=== PATIENT | male | born 1940 | race Two or more races ===

== ENCOUNTER 2022-09-04 04:18 | Emergency (ER) | payer MEDICARE, SELFPAY ==
[2022-09-04] VITALS (12 sets, daily range): BP systolic 141–188; BP diastolic 69–84; PULSE 72–103; RESP 16–20; TEMP 37.5–39.4; O2SAT 92–97; BMI 21.5
--- NOTE | 2022-09-04 04:41 | ED_ITS ---
Documented by User: Hay Mora MD 09/04/22 07:03 HPI - Abdominal Pain General Chief Complaint: Abdominal Pain Stated Complaint: ABDOMINAL PAIN Time Seen by Provider: 09/04/22 04:41 Source: patient Mode of arrival: Wheelchair Limitations: no limitations History of Present Illness HPI narrative: patient presents complaining of constipation. History of leukemia. States he was only able to pass small BM yesterday. No nausea or vomiting. does have low grade fever. States treatment for leukemia for past 6 months. He believes his pain is related to constipation MD elicited complaint: Reports abdominal pain Related Data Home Medications Medication Instructions Recorded Confirmed acyclovir 400 mg tablet 400 mg PO DAILY 09/04/22 09/04/22 allopurinol 300 mg tablet 300 mg PO DAILY 09/04/22 09/04/22 dexamethasone 4 mg tablet 4 mg PO DAILY 09/04/22 09/04/22 rivaroxaban 20 mg tablet (Xarelto) 20 mg PO DAILY 09/04/22 09/04/22 ruxolitinib 10 mg tablet (Jakafi) 5 mg PO DAILY 09/04/22 09/04/22 venetoclax 100 mg tablet 100 mg PO Q24H 09/04/22 09/04/22 (Venclexta) Allergies Allergy/AdvReac Type Severity Reaction Status Date / Time No Known Drug Allergies Allergy Verified 09/04/22 04:32 PFSH PFSH Social History Smoking status: Never smoker Exam Constitutional Vital Signs - 24 hr 09/04/22 04:27 09/04/22 06:04 09/04/22 06:58 Temperature 100.6 F H 103 F H Pulse Rate [Monitor] 74 103 H 97 H Respiratory Rate 18 16 20 Blood Pressure Blood Pressure [Right Arm] 166/72 H 188/84 H 170/75 H Pulse Oximetry 97 95 95 Oxygen Delivery Method Room Air Room Air Room Air 09/04/22 07:30 09/04/22 08:09 09/04/22 08:31 Temperature 100.6 F H 101.9 F H Pulse Rate [Monitor] 91 H 95 H Respiratory Rate 16 18 Blood Pressure Blood Pressure [Right Arm] 157/83 H 153/74 H Pulse Oximetry 94 L 94 L Oxygen Delivery Method Room Air Room Air 09/04/22 08:59 09/04/22 08:35 09/04/22 09:17 Temperature 101.1 F H 99.5 F Pulse Rate [Monitor] 96 H Respiratory Rate 16 Blood Pressure 154/74 H Blood Pressure [Right Arm] 145/70 H Pulse Oximetry 92 L 95 Oxygen Delivery Method Room Air [facility] Common normals: normocephalic and head/scalp atraumatic Eye Common normals: conjunctivae normal Neck & C-Spine Common normals: full ROM and no lymphadenopathy Chest Common normals: inspection of chest normal Respiratory Common normals: normal respiratory effort, no use of accessory muscles and clear to auscultation bilaterally Cardio Common normals: regular rate, regular rhythm, S1 normal heart sound and S2 normal heart sound GI Other: abdomen distended . gen. tenderness Back & Pelvis Common normals: no CVA tenderness and thoracic and lumbar spine normal to inspection Extremity Common normals: normal to inspection and no joint enlargement Neuro Common normals: oriented x3 and CN's II-XII intact bilaterally Psych Common normals: mental status grossly normal Appearance: grossly normal Course Vital Signs Vital signs: Vital Signs Temperature 100.6 F H 09/04/22 04:27 Pulse Rate 74 09/04/22 04:27 Respiratory Rate 18 09/04/22 04:27 Blood Pressure 166/72 H 09/04/22 04:27 Pulse Oximetry 97 09/04/22 04:27 Oxygen Delivery Method Room Air 09/04/22 04:27 Temperature 100.1 F H 09/04/22 13:13 Pulse Rate 72 09/04/22 13:13 Respiratory Rate 18 09/04/22 13:13 Blood Pressure 141/69 H 09/04/22 13:13 Pulse Oximetry 95 09/04/22 13:13 Oxygen Delivery Method Room Air 09/04/22 13:13 MDM - Abdominal Pain MDM Narrative Medical decision making narrative: patient presents with complaint of abdominal pain which he felt was constipated related. he has leukemia and is receiving treatment [facility] oncologist. He has low grade fever and elevated lactic acid. CT demontrated perforate divertic ulitis. patient informed of the need for hospitalization. Vanco, Flagyl and NS hydration ordered . blood cx ordered also. Care transfered to Dr Conde at change of shift Lab Data Labs: Lab Results 09/04/22 09/04/22 09/04/22 Range/Units 04:49 05:49 08:29 WBC 9.5 (4.0-11.0) 10^3/uL RBC 4.79 (4.70-6.10) 10^6/uL Hgb 13.3 L (14.0-18.0) g/dL Hct 42.0 (42.0-54.0) % MCV 87.7 (80.0-94.0) fL MCH 27.8 (25.9-34.0) pg MCHC 31.7 (29.9-35.2) g/dL RDW 22.6 H (11.0-15.0) % Plt Count 238 (150-450) 10^3/uL MPV 0.0 L (9.5-13.5) fL Seg Neuts % (Manual) 79.0 Lymphocytes % (Manual) 7.0 L (20.5-60.0) % Atypical Lymphs % (Man) 5.0 % Monocytes % (Manual) 5.0 (1.7-12.0) % Eosinophils % (Manual) 1.0 (0.9-7.0) % Basophils % (Manual) 0.0 L (0.2-2.0) % Metamyelocytes % 0.0 Myelocytes % 1.0 Neutrophils # (Manual) 7.50 H (1.4-6.5) 10^3/uL Lymphocytes # (Manual) 0.66 L (1.20-3.80) 10^3/uL Monocytes # (Manual) 0.47 (0.30-0.80) 10^3/uL Eosinophils # (Manual) 0.09 (0.00-0.70) 10^3/uL Basophils # (Manual) 0.00 (0.00-0.10) 10^3/uL Metamyelocytes # 0 Myelocytes # 0.09 Nucleated RBCs 3 Sodium 127 L (136-145) mmol/L Potassium 3.6 (3.5-5.1) mmol/L Chloride 98 (98-107) mmol/L Carbon Dioxide 26.5 (21.0-32.0) mmol/L Anion Gap 6.1 BUN 37.0 H (7.0-18.0) mg/dL Creatinine 1.82 H (0.70-1.30) mg/dL Est GFR ( Amer) 43 L (>=60) Est GFR (Non-Af Amer) 36 L (>=60) BUN/Creatinine Ratio 20.3 Glucose 230 H (74-106) mg/dL Lactate 2.5 H* 1.8 (0.4-2.0) mmol/L Calcium 8.2 L (8.5-10.1) mg/dL Total Bilirubin 1.7 H (0.2-1.0) mg/dL AST 31 (15-37) U/L ALT 21 (16-63) U/L Total Protein 6.1 L (6.4-8.2) g/dL Albumin 3.0 L (3.4-5.0) g/dL Globulin 3.1 g/dL Albumin/Globulin Ratio 1.0 Lipase 68.0 L (73.0-393.0) U/L Te H. influenza (PCR) Not detected (NOT DETECTE) Acetaminophen <2.0 L (10.0-30.0) ug/mL A.calcoaceticus-baumannii cmplx PCR Not detected (NOT DETECTE) Bacteroides fragilis Not detected (NOT DETECTE) Andreina albicans (PCR) Not detected (NOT DETECTE) Andreina auris (PCR) Not detected (NOT DETECTE) C. glabrata (PCR) Not detected (NOT DETECTE) C. krusei (PCR) Not detected (NOT DETECTE) C. parapsilosis (PCR) Not detected (NOT DETECTE) C. tropicalis (PCR) Not detected (NOT DETECTE) Enterobacterales (PCR) Not detected (NOT DETECTE) E. cloacae complex PCR Not detected (NOT DETECTE) Enterococc faecalis PCR Not detected (NOT DETECTE) Enterococc faecium PCR Not detected (NOT DETECTE) E. coli (PCR) Not detected (NOT DETECTE) Klebsiella aerogenes (PCR) Not detected (NOT DETECTE) Klebsiella oxytoca PCR Not detected (NOT DETECTE) K. pneumoniae group (PCR) Not detected (NOT DETECTE) List. monocytogenes PCR Not detected (NOT DETECTE) N. meningitidis (PCR) Not detected (NOT DETECTE) Proteus spp. (copies/mL) Not detected (NOT DETECTE) Salmonella spp. (PCR) Not detected (NOT DETECTE) Serratia marcescens PCR Not detected (NOT DETECTE) Staphylococcus sp PCR Not detected (NOT DETECTE) Staph aureus (PCR) Not detected (NOT DETECTE) mecA/C & MREJ Resist Gene Not detected (NOT DETECTE) mecA/C-Methicil Resis Gene Not detected (NOT DETECTE) mcr-1 Colistin Res Gene PCR Not detected (NOT DETECTE) Staph epidermidis (PCR) Not detected (NOT DETECTE) Staph lugdunensis (TEM-PCR) Not detected (NOT DETECTE) S. maltophilia (PCR) Not detected (NOT DETECTE) Streptococcus sp PCR Not detected (NOT DETECTE) Strep agalactiae (PCR) Not detected (NOT DETECTE) Strep pneumoniae (PCR) Not detected (NOT DETECTE) S. pyogenes (PCR) Not detected (NOT DETECTE) P. aeruginosa (PCR) Not detected (NOT DETECTE) Alexandre/B-Vanco Res Genes Not detected (NOT DETECTE) blaIMP Car res Gene PCR Not detected (NOT DETECTE) KPC (blaKPC) Detect PCR Not detected (NOT DETECTE) NDM (blaNDM) Detect PCR Not detected (NOT DETECTE) OXA-48 Carbapenem Resis Gene (PCR) Not detected (NOT DETECTE) blaVIM Car Res Gene PCR Not detected (NOT DETECTE) CTX-M ESBL (PCR) Not detected (NOT DETECTE) Discharge Plan Discharge Chief Complaint: Abdominal Pain Clinical Impression: Perforated diverticulum Patient Disposition: [facility] Time of Disposition Decision: 09:35 Discharge Location: [facility] Discharge location: ER Condition: Good Mode of Transportation: EMS Discharge Date/Time: 09/04/22 13:20 Documented by User: Carlie Conde MD 09/07/22 08:18 HPI - Abdominal Pain General Chief Complaint: Abdominal Pain Stated Complaint: ABDOMINAL PAIN Time Seen by Provider: 09/04/22 04:41 Related Data Home Medications Medication Instructions Recorded Confirmed acyclovir 400 mg tablet 400 mg PO DAILY 09/04/22 09/04/22 allopurinol 300 mg tablet 300 mg PO DAILY 09/04/22 09/04/22 dexamethasone 4 mg tablet 4 mg PO DAILY 09/04/22 09/04/22 rivaroxaban 20 mg tablet (Xarelto) 20 mg PO DAILY 09/04/22 09/04/22 ruxolitinib 10 mg tablet (Jakafi) 5 mg PO DAILY 09/04/22 09/04/22 venetoclax 100 mg tablet 100 mg PO Q24H 09/04/22 09/04/22 (Venclexta) Allergies Allergy/AdvReac Type Severity Reaction Status Date / Time No Known Drug Allergies Allergy Verified 09/04/22 04:32 PFSH PFSH Social History Smoking status: Never smoker Exam Constitutional Vital Signs - 24 hr 09/04/22 04:27 09/04/22 06:04 09/04/22 06:58 Temperature 100.6 F H 103 F H Pulse Rate [Monitor] 74 103 H 97 H Respiratory Rate 18 16 20 Blood Pressure Blood Pressure [Right Arm] 166/72 H 188/84 H 170/75 H Pulse Oximetry 97 95 95 Oxygen Delivery Method Room Air Room Air Room Air 09/04/22 07:30 09/04/22 08:09 09/04/22 08:31 Temperature 100.6 F H 101.9 F H Pulse Rate [Monitor] 91 H 95 H Respiratory Rate 16 18 Blood Pressure Blood Pressure [Right Arm] 157/83 H 153/74 H Pulse Oximetry 94 L 94 L Oxygen Delivery Method Room Air Room Air 09/04/22 08:59 09/04/22 08:35 09/04/22 09:17 Temperature 101.1 F H 99.5 F Pulse Rate [Monitor] 96 H Respiratory Rate 16 Blood Pressure 154/74 H Blood Pressure [Right Arm] 145/70 H Pulse Oximetry 92 L 95 Oxygen Delivery Method Room Air Course Vital Signs Vital signs: Vital Signs Temperature 100.6 F H 09/04/22 04:27 Pulse Rate 74 09/04/22 04:27 Respiratory Rate 18 09/04/22 04:27 Blood Pressure 166/72 H 09/04/22 04:27 Pulse Oximetry 97 09/04/22 04:27 Oxygen Delivery Method Room Air 09/04/22 04:27 Temperature 100.1 F H 09/04/22 13:13 Pulse Rate 72 09/04/22 13:13 Respiratory Rate 18 09/04/22 13:13 Blood Pressure 141/69 H 09/04/22 13:13 Pulse Oximetry 95 09/04/22 13:13 Oxygen Delivery Method Room Air 09/04/22 13:13 MDM - Abdominal Pain MDM Narrative Medical decision making narrative: patient presents with complaint of abdominal pain which he felt was constipated related. he has leukemia and is receiving treatment [facility] oncologist. He has low grade fever and elevated lactic acid. CT demontrated perforate diverticulitis. patient informed of the need for hospitalization. Vanco, Flagyl and NS hydration ordered . blood cx ordered also. Care transfered to Dr Conde at change of shift Patient signed out to me by Dr. Mora awaiting fire Reynold to call back for transfer. Patient was discussed with the hospitalist Dr. Blank who advised he spoke with the surgeon and he stated because of the patient's comorbidities it would be best for the patient to be transferred to the [facility] where [facility]. The patient states he wants to be transferred to [facility] and does not want me to attempt any other hospital at this time. He understands that this could cause delaying care disability, and . at this time we are waiting a callback from [facility]. She was discussed with Dr. Peña from surgery at the [facility] at 9:30 who advised the patient can be transferred she has accepted the patient. Patient was started on Zosyn. They will call us back and they get a bed. Differential Diagnosis Differential diagnosis: Likely constipation, small bowel obstruction and other Medical Records Attestation: I reviewed the patient's medical records. Lab Data Attestation: I reviewed the patient's lab results. Labs: Lab Results 09/04/22 09/04/22 09/04/22 Range/Units 04:49 05:49 08:29 WBC 9.5 (4.0-11.0) 10^3/uL RBC 4.79 (4.70-6.10) 10^6/uL Hgb 13.3 L (14.0-18.0) g/dL Hct 42.0 (42.0-54.0) % MCV 87.7 (80.0-94.0) fL MCH 27.8 (25.9-34.0) pg MCHC 31.7 (29.9-35.2) g/dL RDW 22.6 H (11.0-15.0) % Plt Count 238 (150-450) 10^3/uL MPV 0.0 L (9.5-13.5) fL Seg Neuts % (Manual) 79.0 Lymphocytes % (Manual) 7.0 L (20.5-60.0) % Atypical Lymphs % (Man) 5.0 % Monocytes % (Manual) 5.0 (1.7-12.0) % Eosinophils % (Manual) 1.0 (0.9-7.0) % Basophils % (Manual) 0.0 L (0.2-2.0) % Metamyelocytes % 0.0 Myelocytes % 1.0 Neutrophils # (Manual) 7.50 H (1.4-6.5) 10^3/uL Lymphocytes # (Manual) 0.66 L (1.20-3.80) 10^3/uL Monocytes # (Manual) 0.47 (0.30-0.80) 10^3/uL Eosinophils # (Manual) 0.09 (0.00-0.70) 10^3/uL Basophils # (Manual) 0.00 (0.00-0.10) 10^3/uL Metamyelocytes # 0 Myelocytes # 0.09 Nucleated RBCs 3 Sodium 127 L (136-145) mmol/L Potassium 3.6 (3.5-5.1) mmol/L Chloride 98 (98-107) mmol/L Carbon Dioxide 26.5 (21.0-32.0) mmol/L Anion Gap 6.1 BUN 37.0 H (7.0-18.0) mg/dL Creatinine 1.82 H (0.70-1.30) mg/dL Est GFR ( Amer) 43 L (>=60) Est GFR (Non-Af Amer) 36 L (>=60) BUN/Creatinine Ratio 20.3 Glucose 230 H (74-106) mg/dL Lactate 2.5 H* 1.8 (0.4-2.0) mmol/L Calcium 8.2 L (8.5-10.1) mg/dL Total Bilirubin 1.7 H (0.2-1.0) mg/dL AST 31 (15-37) U/L ALT 21 (16-63) U/L Total Protein 6.1 L (6.4-8.2) g/dL Albumin 3.0 L (3.4-5.0) g/dL Globulin 3.1 g/dL Albumin/Globulin Ratio 1.0 Lipase 68.0 L (73.0-393.0) U/L Te H. influenza (PCR) Not detected (NOT DETECTE) Acetaminophen <2.0 L (10.0-30.0) ug/mL A.calcoaceticus-baumannii cmplx PCR Not detected (NOT DETECTE) Bacteroides fragilis Not detected (NOT DETECTE) Andreina albicans (PCR) Not detected (NOT DETECTE) Andreina auris (PCR) Not detected (NOT DETECTE) C. glabrata (PCR) Not detected (NOT DETECTE) C. krusei (PCR) Not detected (NOT DETECTE) C. parapsilosis (PCR) Not detected (NOT DETECTE) C. tropicalis (PCR) Not detected (NOT DETECTE) Enterobacterales (PCR) Not detected (NOT DETECTE) E. cloacae complex PCR Not detected (NOT DETECTE) Enterococc faecalis PCR Not detected (NOT DETECTE) Enterococc faecium PCR Not detected (NOT DETECTE) E. coli (PCR) Not detected (NOT DETECTE) Klebsiella aerogenes (PCR) Not detected (NOT DETECTE) Klebsiella oxytoca PCR Not detected (NOT DETECTE) K. pneumoniae group (PCR) Not detected (NOT DETECTE) List. monocytogenes PCR Not detected (NOT DETECTE) N. meningitidis (PCR) Not detected (NOT DETECTE) Proteus spp. (copies/mL) Not detected (NOT DETECTE) Salmonella spp. (PCR) Not detected (NOT DETECTE) Serratia marcescens PCR Not detected (NOT DETECTE) Staphylococcus sp PCR Not detected (NOT DETECTE) Staph aureus (PCR) Not detected (NOT DETECTE) mecA/C & MREJ Resist Gene Not detected (NOT DETECTE) mecA/C-Methicil Resis Gene Not detected (NOT DETECTE) mcr-1 Colistin Res Gene PCR Not detected (NOT DETECTE) Staph epidermidis (PCR) Not detected (NOT DETECTE) Staph lugdunensis (TEM-PCR) Not detected (NOT DETECTE) S. maltophilia (PCR) Not detected (NOT DETECTE) Streptococcus sp PCR Not detected (NOT DETECTE) Strep agalactiae (PCR) Not detected (NOT DETECTE) Strep pneumoniae (PCR) Not detected (NOT DETECTE) S. pyogenes (PCR) Not detected (NOT DETECTE) P. aeruginosa (PCR) Not detected (NOT DETECTE) Alexandre/B-Vanco Res Genes Not detected (NOT DETECTE) blaIMP Car res Gene PCR Not detected (NOT DETECTE) KPC (blaKPC) Detect PCR Not detected (NOT DETECTE) NDM (blaNDM) Detect PCR Not detected (NOT DETECTE) OXA-48 Carbapenem Resis Gene (PCR) Not detected (NOT DETECTE) blaVIM Car Res Gene PCR Not detected (NOT DETECTE) CTX-M ESBL (PCR) Not detected (NOT DETECTE) Imaging Data CT scan - abdomen: Radiologist's impression: Patient Name: DONNIE CRUZ MRN: [facility]:[id number] date: 1940 Sex: M Assigned Patient Location: ER Current Patient Location: ER Accession/Order Number: [id number] Exam Date: 09/04/2022 05:45 Report Date: 09/04/2022 06:24 At the request of: HAY MORA Procedure: CT abdomen pelvis w con EXAM: CT scan of the abdomen and pelvis using constipation mL of IV iodinated contrast. Dose reduction technique used: Automated exposure control and/or adjustment of the mA and/or kV according to patient size and/or use of iterative reconstruction technique. REASON FOR EXAM: abdominal pain COMPARISON: CT scan dated 03/26/2020 FINDINGS: Inflammatory changes in the lower abdomen surrounding the sigmoid colon. Small amount of extraluminal gas adjacent to the sigmoid colon in the right pelvis. Splenomegaly with heterogenous regions of low-attenuation. Wall thickening of the sigmoid colon in this region. Small collection of fluid and gas abutting the colon and the dome of the bladder.. Mild wall thickening of loops of small bowel in the lower abdomen. Bladder wall thickening. Left lateral pelvic 2.2 x 2.3 cm structure with varying densities including fluid, soft tissue calcification. Small right renal hernia containing a small amount of fluid. Small hernia in the lateral right abdominal wall musculature containing fat and a small amount of fluid. Small amount of ascites. Grade 1 anterolisthesis of L4 on L5. Multiple left renal cysts. Cholecystectomy. Appendectomy. Tiny hepatic cyst. Colonic diverticulosis. The uppermost portion of the right hepatic dome is not included in the [id number]. No dilated loops of small bowel or colon. No hydronephrosis or obstructing renal or ureteral calculi. Liver, pancreas, spleen, bilateral kidneys, and bilateral adrenal glands are otherwise unremarkable. No lymphadenopathy in the abdomen or pelvis. Remainder unremarkable. IMPRESSION: 1. Findings likely represent perforated acute sigmoid diverticulitis. 2. Small collection of fluid and gas between the sigmoid colon in the dome of the bladder may be due to a prominent diverticulum although a small pericolonic abscess is difficult to exclude. 3. Small bowel wall thickening is likely secondary to the peritoneal inflammation although enteritis cannot be excluded. 4. Bladder wall thickening is likely secondary to the adjacent inflammation. 5. Splenomegaly with areas of low-attenuation which may represent age-indeterminate infarcts, correlate clinically. 6. Lateral left lower pelvic heterogenous density lesion is favored to represent fat necrosis. Electronically authenticated by: CARIDAD ROSENBERG Date: 09/04/2022 06:24 Discharge Plan Discharge Chief Complaint: Abdominal Pain Clinical Impression: Perforated diverticulum Patient Disposition: [facility] Time of Disposition Decision: 09:35 Discharge Location: [facility] Discharge location: ER Condition: Good Mode of Transportation: EMS Discharge Date/Time: 09/04/22 13:20
[2022-09-04 05:22] LABS: Alanine Aminotransferase 21 U/L (16-63); Alkaline Phosphatase 73 U/L (46-116); Anion Gap 6.1; Aspartate Amino Transferase 31 U/L (15-37); BUN Creatinine Ratio 20.3; Bilirubin Total 1.7 mg/dL (0.2-1.0); Calcium 8.2 mg/dL (8.5-10.1); Carbon Dioxide 26.5 mmol/L (21.0-32.0); Chloride 98 mmol/L (98-107); Estimated GFR (African America 43 (>=60); Estimated GFR (Non-African Ame 36 (>=60); Globulin 3.1 g/dL; Glucose 230 mg/dL (74-106); Potassium 3.6 mmol/L (3.5-5.1); Sodium 127 mmol/L (136-145); Total Protein 6.1 g/dL (6.4-8.2)
[2022-09-04 05:31] LABS: Hemoglobin 13.3 g/dL (14.0-18.0); Lactate/Lactic Acid 2.5 mmol/L (0.4-2.0); Mean Corpuscular HGB Conc 31.7 g/dL (29.9-35.2); Mean Corpuscular Hemoglobin 27.8 pg (25.9-34.0); Mean Corpuscular Volume 87.7 fL (80.0-94.0); Platelet Count 238 10^3/uL (150-450); Red Blood Count 4.79 10^6/uL (4.70-6.10); Red Cell Distribution Width 22.6 % (11.0-15.0); White Blood Count 9.5 10^3/uL (4.0-11.0)
[2022-09-04] MEDS: 0.9 % SODIUM CHLORIDE 1,000 ML 999 ML IV ×2 (05:35→08:16)
--- NOTE | 2022-09-04 05:39 | PC.NURSE ---
To CT at this time.
[2022-09-04 05:51] LABS: Eosinophils Absolute Manual 0.09 10^3/uL (0.00-0.70); Lymphocytes Absolute Manual 0.66 10^3/uL (1.20-3.80); Metamyelocytes Absolute Manual 0; Monocytes Absolute Manual 0.47 10^3/uL (0.30-0.80); Myelocytes Absolute Manual 0.09
[2022-09-04 05:52] LABS: Nucleated Red Blood Cells 3
--- NOTE | 2022-09-04 07:11 | PC.NURSE ---
called pharmacy cps due to unverified medications due to sepsis alert times 2 with medications continues to be unverified. Aubrie Trevino
[2022-09-04] MEDS: 0.9 % SODIUM CHLORIDE 1,000 ML 1000 ML IV (07:25)
[2022-09-04] MEDS: ACETAMINOPHEN 500 MG TABLET 1000 MG PO (07:30)
[2022-09-04 07:33] LABS: Acetaminophen <2.0 ug/mL (10.0-30.0)
[2022-09-04] MEDS: VANCOMYCIN HCL 1,000 MG in 0.9 % SODIUM CHLORIDE 250 ML 250 MG IV (07:37)
--- NOTE | 2022-09-04 08:15 | PC.NURSE ---
UPDATED DR ROTH INCREASED TEMP, PT REPEAT LACTIC ORDERED, AND PT CONTINUED NS BOLUS 2ND LITER STARTED. DIONTE OBANDO
[2022-09-04] MEDS: METRONIDAZOLE/SODIUM CHLORIDE 500 MG/100 ML PREMIX 100 MG IV (08:31)
[2022-09-04 09:10] LABS: Lactate/Lactic Acid 1.8 mmol/L (0.4-2.0)
[2022-09-04] MEDS: PIPERACILLIN SODIUM/TAZOBACTAM 4.5 GM in 0.9 % SODIUM CHLORIDE 50 ML IV (10:10)
--- NOTE | 2022-09-04 13:10 | PC.NURSE ---
EMS ARRIVES TO TAKE PT TO [facility]. REPORT GIVEN TO EMS STAFF WHO ASSUMES CARE. PT BELONGINGS ALL READY FOR PT TO TAKE ON TRANSPORT. DIONTE OBANDO
[2022-09-06 08:06] LABS: A. calcoaceticus-baumannii Cpx NOT DETECTED (NOT DETECTE); Bacteroides fragilis NOT DETECTED (NOT DETECTE); CTX-M NOT DETECTED (NOT DETECTE); Candida albicans NOT DETECTED (NOT DETECTE); Candida auris NOT DETECTED (NOT DETECTE); Candida glabrata NOT DETECTED (NOT DETECTE); Candida krusei NOT DETECTED (NOT DETECTE); Candida parapsilosis NOT DETECTED (NOT DETECTE); Candida tropicalis NOT DETECTED (NOT DETECTE); Enterobacter cloacae complex NOT DETECTED (NOT DETECTE); Enterobacterales NOT DETECTED (NOT DETECTE); Enterococcus faecalis NOT DETECTED (NOT DETECTE); Enterococcus faecium NOT DETECTED (NOT DETECTE); Haemophilus influenzae NOT DETECTED (NOT DETECTE); IMP NOT DETECTED (NOT DETECTE); KPC NOT DETECTED (NOT DETECTE); Klebsiella aerogenes NOT DETECTED (NOT DETECTE); Klebsiella pneumoniae group NOT DETECTED (NOT DETECTE); Listeria monocytogenes NOT DETECTED (NOT DETECTE); NDM NOT DETECTED (NOT DETECTE); Neisseria meningitidis NOT DETECTED (NOT DETECTE); OXA-48-like NOT DETECTED (NOT DETECTE); Proteus spp. NOT DETECTED (NOT DETECTE); Pseudomonas aeruginosa NOT DETECTED (NOT DETECTE); Salmonella spp. NOT DETECTED (NOT DETECTE); Serratia marcescens NOT DETECTED (NOT DETECTE); Staphylococcus epidermidis NOT DETECTED (NOT DETECTE); Staphylococcus lugdunensis NOT DETECTED (NOT DETECTE); Staphylococcus spp. NOT DETECTED (NOT DETECTE); Stenotrophomonas maltophilia NOT DETECTED (NOT DETECTE); Streptococcus agalactiae NOT DETECTED (NOT DETECTE); Streptococcus pneumoniae NOT DETECTED (NOT DETECTE); Streptococcus pyogenes NOT DETECTED (NOT DETECTE); Streptococcus spp. NOT DETECTED (NOT DETECTE); VIM NOT DETECTED (NOT DETECTE); mcr-1 NOT DETECTED (NOT DETECTE); mecA/C NOT DETECTED (NOT DETECTE); mecA/C and MREJ (MRSA) NOT DETECTED (NOT DETECTE); vanA/B NOT DETECTED (NOT DETECTE)
[2022-09-08 12:55] LABS: Cryptococcus neoformans/gattii NOT DETECTED (NOT DETECTE)
== END 2022-09-04 13:20 | disposition short-term general hospital (02) ==
PROVIDERS: Internal Medicine; Emergency Provider Emergency Medicine; PCP Internal Medicine
DX: K57.20 Diverticulitis of large intestine with perforation and abscess without bleeding (principal); C95.90 Leukemia, unspecified not having achieved remission; Z79.899 Other long term (current) drug therapy; R50.9 Fever, unspecified; R10.9 Unspecified abdominal pain
CPT/HCPCS: 36415; 74177; 80053; 80329; 81001; 83605; 83690; 85025; 85027; 87040; 87076; 87150; 96365; 96367; 96368; 99285; J3370; Q9967

== ENCOUNTER 2022-12-18 22:03 | Emergency (ER) | payer MEDICARE, SELFPAY ==
[2022-12-18] VITALS (10 sets, daily range): BP systolic 155; BP diastolic 86; PULSE 70–99; RESP 12–20; TEMP 36.7; O2SAT 97–100; BMI 18.3
--- NOTE | 2022-12-18 22:47 | ED.AMS1 ---
HPI - Altered Mental Status General Chief Complaint: Altered Mental Status Stated Complaint: Altered Mental Status Time Seen by Provider: 12/18/22 22:44 Source: other Source comment: EMS Mode of arrival: ambulance Limitations: language barrier History of Present Illness HPI narrative: [facility] patient. History of leukemia. Per [facility] staff he was seeing mosquitos this AM that no one else was seeing. He is brought here tonight because [facility] staff feels he is not acting normal. No fever. He is DNRCCA Related Data Home Medications Medication Instructions Recorded Confirmed acyclovir 400 mg tablet 400 mg PO DAILY 09/04/22 09/04/22 allopurinol 300 mg tablet 300 mg PO DAILY 09/04/22 09/04/22 dexamethasone 4 mg tablet 4 mg PO DAILY 09/04/22 09/04/22 rivaroxaban 20 mg tablet (Xarelto) 20 mg PO DAILY 09/04/22 09/04/22 ruxolitinib 10 mg tablet (Jakafi) 5 mg PO DAILY 09/04/22 09/04/22 venetoclax 100 mg tablet 100 mg PO Q24H 09/04/22 09/04/22 (Venclexta) Allergies Allergy/AdvReac Type Severity Reaction Status Date / Time No Known Drug Allergies Allergy Verified 09/04/22 04:32 Review of Systems ROS Status of ROS 10 or more systems reviewed and unremarkable except as noted in history and below PFSH PFS Social History Smoking status: Never smoker Exam Constitutional Vital Signs, click to edit/add: Last Vital Signs Temp 98.0 F 12/18/22 22:11 Pulse 93 H 12/19/22 02:24 Resp 14 12/19/22 02:24 BP 151/67 H 12/19/22 02:24 Pulse Ox 99 12/19/22 02:24 O2 Del Method Room Air 12/19/22 02:24 Common normals: no apparent distress and alert Other: thin frame male. Speaks Burmese but answering simple questions in [place]. Denies headache, chest pain. shortness of breath or abdominal pain. States he feels ok HENMT Common normals: normocephalic and head/scalp atraumatic Eye Common normals: EOMs intact bilaterally and conjunctivae normal Respiratory Common normals: normal respiratory effort, no retractions, no use of accessory muscles and clear to auscultation bilaterally Cardio Common normals: regular rate, regular rhythm, S1 normal heart sound and S2 normal heart sound GI Common normals: Normal to inspection, nondistended, normoactive bowel sounds present, soft to palpation and non-tender Extremity Common normals: normal to inspection Neuro Common normals: oriented x3 (alert. speaks lithuanian), moves all extremities and no focal motor deficits Psych Appearance: grossly normal Course Vital Signs Vital signs: Vital Signs Pulse Rate 83 12/18/22 22:09 Respiratory Rate 17 12/18/22 22:09 Temperature 98.0 F 12/18/22 22:11 Pulse Rate 93 H 12/19/22 02:24 Respiratory Rate 14 12/19/22 02:24 Blood Pressure 151/67 H 12/19/22 02:24 Pulse Oximetry 99 12/19/22 02:24 Oxygen Delivery Method Room Air 12/19/22 02:24 MDM - Altered Mental Status MDM Narrative Medical decision making narrative: patient has leukemia and is DNRCCA. per family chemotherapy is on hold . He presents describing hallucinations. Seeing mosquitos flying around when no one else is seeing them. Family did talk to him at beside and he recognize them. They felt his speech was very weak. No focal deficits. Labs demonstrates worsening of leukemia with his WBC elevated to 211. His kidneys are also shutting down. BUN 78 and creat 6.39. UA with sp. gr 1015. sodium 120 and potassium 5.6 discussed with his sister jag his dire condition and she is requesting Hospice. He is resting comfortably. Will contact the [facility] to see if they can arrange for hospice Lab Data Labs: Lab Results 12/18/22 12/19/22 Range/Units 23:17 01:12 WBC 211.0 H* (4.0-11.0) 10^3/uL RBC 3.90 L (4.70-6.10) 10^6/uL Hgb 10.0 L (14.0-18.0) g/dL Hct 32.8 L (42.0-54.0) % MCV 84.1 (80.0-94.0) fL MCH 25.6 L (25.9-34.0) pg MCHC 30.5 (29.9-35.2) g/dL RDW 21.2 H (11.0-15.0) % Plt Count 87 L (150-450) 10^3/uL MPV 0.0 L (9.5-13.5) fL Neut % (Auto) 61.9 (43.0-75.0) % Lymph % (Auto) 2.8 L (20.5-60.0) % [place] % (Auto) 16.7 H (1.7-12.0) % Eos % (Auto) 0.9 (0.9-7.0) % Baso % (Auto) 2.4 H (0.2-2.0) % Neut # (Auto) 130.5 H (1.4-6.5) 10^3/uL Lymph # (Auto) 5.9 H (1.2-3.8) 10^3/uL [place] # (Auto) 35.3 H (0.3-0.8) 10^3/uL Eos # (Auto) 2.0 H (0.0-0.7) 10^3/uL Baso # (Auto) 5.1 H (0.0-0.1) 10^3/uL Abs Immat Gran (auto) 32.23 H (0.00-0.03) 10^3/uL Seg Neuts % (Manual) 48.0 Band Neutrophils % 18.0 H (0-5) % Lymphocytes % (Manual) 4.0 L (20.5-60.0) % Atypical Lymphs % (Man) 5.0 % Monocytes % (Manual) 9.0 (1.7-12.0) % Eosinophils % (Manual) 1.0 (0.9-7.0) % Basophils % (Manual) 0.0 L (0.2-2.0) % Blast Cells % (Manual) 15.0 Imm/Tot Granulo (auto) 15.3 H (0.0-0.5) % Neutrophils # (Manual) 101.28 H (1.4-6.5) 10^3/uL Band Neutrophils # 38.0 H (0.0-0.3) 10^3/uL Lymphocytes # (Manual) 8.44 H (1.20-3.80) 10^3/uL Abs Atypical Lymphs Man 10.6 Monocytes # (Manual) 18.99 H (0.30-0.80) 10^3/uL Eosinophils # (Manual) 2.11 H (0.00-0.70) 10^3/uL Basophils # (Manual) 0.00 (0.00-0.10) 10^3/uL Blast Cells # 31.65 Hypersegmented Neuts 4+ Hypochromasia 3+ Poikilocytosis 3+ Sodium 120 L* (136-145) mmol/L Potassium 5.6 H (3.5-5.1) mmol/L Chloride 89 L (98-107) mmol/L Carbon Dioxide 16.7 L (21.0-32.0) mmol/L Anion Gap 19.9 BUN 78.0 H* (7.0-18.0) mg/dL Creatinine 6.39 H* (0.70-1.30) mg/dL Est GFR ( Amer) 10 L (>=60) Est GFR (Non-Af Amer) 8 L (>=60) BUN/Creatinine Ratio 12.2 Glucose 123 H (74-106) mg/dL Lactate 2.1 H (0.4-2.0) mmol/L Calcium 7.3 L (8.5-10.1) mg/dL Total Bilirubin 0.6 (0.2-1.0) mg/dL AST 59 H (15-37) U/L ALT 30 (16-63) U/L Alkaline Phosphatase 184 H (46-116) U/L Troponin I High Sens 18.8 (4.0-76.1) pg/mL Total Protein 8.6 H (6.4-8.2) g/dL Albumin 2.7 L (3.4-5.0) g/dL Globulin 5.9 g/dL Albumin/Globulin Ratio 0.5 Urine Color Lt. yellow (YELLOW) Urine Clarity Clear (CLEAR) Urine pH 6.0 (5.0-9.0) Ur Specific [place] 1.015 (1.005-1.025) Urine Protein >=300 A (NEG/TRACE) mg/dL Urine Glucose (UA) Negative (NEGATIVE) mg/dL Urine Ketones Negative (NEGATIVE) mg/dL Urine Occult Blood Moderate A (NEGATIVE) Urine Nitrite Negative (NEGATIVE) Urine Bilirubin Negative (NEGATIVE) Urine Urobilinogen 0.2 (0.2-1.0) EU/dL Ur Leukocyte Esterase Negative (NEGATIVE) Urine RBC 0-2 (0-2) #/HPF Urine WBC 2-5 A (NONE SEEN) #/HPF Ur Squamous Epith Cells Rare (NONE/RARE) #/LPF Urine Crystals Seen A (None Seen) #/HPF Amorphous Sediment Many Urine Bacteria Moderate A (NONE SEEN) #/HPF Urine Casts None seen (NONE SEEN) #/LPF Urine Mucus None seen (NONE SEEN) Ur Culture Indicated? Yes Discharge Plan Discharge Chief Complaint: Altered Mental Status Clinical Impression: Hyponatremia, Leukemia, Renal failure (ARF), acute on chronic Patient Disposition: Xfer [facility] Mode of Transportation: EMS Instructions: Hyponatremia (ED), Altered Mental Status (ED), End Stage Kidney Disease (ED) Additional Instructions: Consult Hospice. Stand Alone Forms: Portal Instructions Referrals: PALMIRA GARCIA [Primary Care Provider] - 1 week
--- NOTE | 2022-12-18 22:51 | ECG_ITS ---
The [facility] Test Date: 2022-12-18 Pat Name: DONNIE CRUZ Department: Room: - Gender: Male Poultry Sexer: : 1940 Requested By: PALMIRA GARCIA Order Number: [id number] Reading MD: JATIN BARGER Measurements Intervals [place] Rate: 83 P: 58 MD: 174 QRS: 33 QRSD: 80 T: 33 QT: 348 QTc: 388 Interpretive Statements 1100 Sinus rhythm 9110 normal ECG No previous ECG available for comparison Electronically Signed On 12-19-2022 13:11:11 EDT by JATIN BARGER
--- NOTE | 2022-12-18 22:51 | CT_ITS ---
The [address] [address] Patient Name: DONNIE CRUZ MRN: [id number] date: 1940 Sex: M Assigned Patient Location: ER Current Patient Location: ER Accession/Order Number: [id number] Exam Date: 12/18/2022 23:15 Report Date: 12/18/2022 23:50 At the request of: AAN LUTHER Procedure: CT head/brain wo con EXAM: CT head/brain wo con HISTORY: altered mental status COMPARISON: None. TECHNIQUE: Noncontrast axial CT images through the head were obtained with coronal and sagittal reformats. Dose reduction techniques were achieved by using automated exposure control and/or adjustment of mA and/or kV according to patient size and/or use of iterative reconstruction technique. FINDINGS: There is generalized volume loss. There is decreased attenuation within the periventricular, deep, and subcortical white matter suggestive of chronic microvascular ischemic changes. There is no evidence of intracranial hemorrhage, mass, or midline shift. No extra-axial fluid collection is seen. There is opacification of the left frontal sinus and the majority of the left ethmoid air cells. There is mucosal thickening and frothy secretions in the left maxillary sinus. The mastoid air cells are clear. No skull abnormalities are identified. CT/CT head/brain wo con IMPRESSION: 1. No acute intracranial abnormality. 2. Sinus disease. Please correlate for acute sinusitis. Electronically authenticated by: Emmanuel ANDERSON Date: 12/18/2022 23:50
--- NOTE | 2022-12-18 22:51 | XR_ITS ---
The [address] [address] Patient Name: DONNIE CRUZ MRN: [id number] date: 1940 Sex: M Assigned Patient Location: ER Current Patient Location: ER Accession/Order Number: [id number] Exam Date: 12/18/2022 23:15 Report Date: 12/18/2022 23:35 At the request of: ANA LUTHER Procedure: XR chest 1V EXAM: XR chest 1V HISTORY: altered mental status COMPARISON: None. TECHNIQUE: AP portable study FINDINGS: The heart is upper normal in transverse diameter. Early calcification is noted at the aortic arch. The lung clemente are well-expanded and clear. Pleural spaces are clear. Bony structures are unremarkable. There is a left jugular Port-A-Cath, tip in the superior vena cava. XR/XR chest 1V IMPRESSION: No evidence for acute cardiopulmonary disease. Electronically authenticated by: Genie CUTLER Date: 12/18/2022 23:35
[2022-12-18] MEDS: 0.9 % SODIUM CHLORIDE 1,000 ML 100 ML IV (23:06)
[2022-12-18 23:27] LABS: Hematocrit 32.8 % (42.0-54.0); Mean Corpuscular HGB Conc 30.5 g/dL (29.9-35.2); Mean Corpuscular Hemoglobin 25.6 pg (25.9-34.0); Mean Corpuscular Volume 84.1 fL (80.0-94.0); Platelet Count 87 10^3/uL (150-450); Red Cell Distribution Width 21.2 % (11.0-15.0)
[2022-12-18 23:45] LABS: Lactate/Lactic Acid 2.1 mmol/L (0.4-2.0)
[2022-12-18 23:46] LABS: Alanine Aminotransferase 30 U/L (16-63); Albumin Globulin Ratio 0.5; Albumin Level 2.7 g/dL (3.4-5.0); Alkaline Phosphatase 184 U/L (46-116); Anion Gap 19.9; Aspartate Amino Transferase 59 U/L (15-37); BUN Creatinine Ratio 12.2; Bilirubin Total 0.6 mg/dL (0.2-1.0); Calcium 7.3 mg/dL (8.5-10.1); Carbon Dioxide 16.7 mmol/L (21.0-32.0); Chloride 89 mmol/L (98-107); Estimated GFR (African America 10 (>=60); Estimated GFR (Non-African Ame 8 (>=60); Globulin 5.9 g/dL; Glucose 123 mg/dL (74-106); Potassium 5.6 mmol/L (3.5-5.1); Total Protein 8.6 g/dL (6.4-8.2); Troponin I High Sensitivity 18.8 pg/mL (4.0-76.1)
[2022-12-18 23:49] LABS: Basophils Absolute Auto 5.1 10^3/uL (0.0-0.1); Basophils Percent Auto 2.4 % (0.2-2.0); Eosinophils Percent Auto 0.9 % (0.9-7.0); Immature Granulocytes Abs Auto 32.23 10^3/uL (0.00-0.03); Immature Granulocytes Pct Auto 15.3 % (0.0-0.5); Lymphocytes Absolute Auto 5.9 10^3/uL (1.2-3.8); Lymphocytes Absolute Manual 8.44 10^3/uL (1.20-3.80); Lymphocytes Percent Auto 2.8 % (20.5-60.0); Monocytes Absolute Auto 35.3 10^3/uL (0.3-0.8); Monocytes Percent Auto 16.7 % (1.7-12.0); Neutrophils Absolute Auto 130.5 10^3/uL (1.4-6.5); Neutrophils Percent Auto 61.9 % (43.0-75.0); Segmented Neut Absolute Manual 101.28 10^3/uL (1.4-6.5)
[2022-12-18 23:50] LABS: Atypical Lymphocytes Abs Man 10.6; Blast Absolute Manual 31.65; Eosinophils Absolute Manual 2.11 10^3/uL (0.00-0.70); Hypersegmented Neutrophils 4+; Hypochromasia 3+; Monocytes Absolute Manual 18.99 10^3/uL (0.30-0.80); Poikilocytosis 3+
[2022-12-18 23:55] LABS: Sodium 120 mmol/L (136-145)
[2022-12-19] VITALS (8 sets, daily range): BP systolic 125–151; BP diastolic 67–73; PULSE 66–93; RESP 7–17; O2SAT 97–99
[2022-12-19 01:25] LABS: Bilirubin Urine NEGATIVE (NEGATIVE); Blood Urine MODERATE (NEGATIVE); Clarity Urine CLEAR (CLEAR); Color Urine LT. YELLOW (YELLOW); Glucose Urine UA NEGATIVE (NEGATIVE); Ketones Urine NEGATIVE (NEGATIVE); Leukocyte Esterase Urine NEGATIVE (NEGATIVE); Nitrite Urine NEGATIVE (NEGATIVE); Protein Urine >=300 mg/dL (NEG/TRACE); Specific Gravity Urine 1.015 (1.005-1.025); Urobilinogen Urine 0.2 EU/dL (0.2-1.0)
[2022-12-19 01:34] LABS: Urine Microscopic Indicated YES
[2022-12-19 01:43] LABS: Bacteria Urine MODERATE #/HPF (NONE SEEN); Crystals Seen? Seen #/HPF (None Seen); Mucus Urine NONE SEEN (NONE SEEN); RBC Urine 0-2 #/HPF (0-2); Squamous Epithelial Cell Urine RARE #/LPF (NONE/RARE)
[2022-12-19 01:44] LABS: Amorphous Sediment Urine MANY; Cast Seen? NONE SEEN #/LPF (NONE SEEN); Urine Culture Indicated YES
== END 2022-12-19 04:21 ==
PROVIDERS: Emergency Provider Internal Medicine; PCP Internal Medicine
DX: E87.1 Hypo-osmolality and hyponatremia (principal); N17.9 Acute kidney failure, unspecified; N18.9 Chronic kidney disease, unspecified; C95.90 Leukemia, unspecified not having achieved remission; Z66 Do not resuscitate; Z79.01 Long term (current) use of anticoagulants; Z79.899 Other long term (current) drug therapy
CPT/HCPCS: 36415; 70450; 71045; 80053; 81001; 83605; 84484; 85025; 85027; 87086; 93005; 99285